=== PATIENT | male | born 1955 | race Caucasian/White ===

== ENCOUNTER 2017-11-28 15:04 | Inpatient (IN) | payer OTHER ==
[~2017-11-28] VITALS: Ht 185.4 cm; Wt 68.1 kg
[~2017-11-28 15:04] MED LIST: APIX5TAB PO; DIAZ10 PO; GENT0.1C TOPICAL; LEVO150T7 PO; LISI-515 PO; LOVA20TA PO; PROP15TA PO; PROP50TA2 PO; VARE.5 PO
[2017-11-28 15:56] VITALS: BP 143/86; PULSE 80; RESP 18; TEMP 100.7; O2SAT 99
[2017-11-28 17:15] LABS: AUTOMATED NEUTROPHIL # 14.9 TH/MM3 (1.8-7.7); BASOPHIL % 0.2 % (0.0-2.0); HEMATOCRIT 46.3 % (39.0-51.0); HEMOGLOBIN 15.5 GM/DL (13.0-17.0); LYMPH % 6.1 % (9.0-44.0); LYMPHOCYTE # 1.1 TH/MM3 (1.0-4.8); MEAN CELL VOLUME 91.1 FL (80.0-100.0); MEAN CORPUSCULAR HEMOGLOBIN 30.5 PG (27.0-34.0); MEAN CORPUSCULAR HGB CONC 33.5 % (32.0-36.0); MEAN PLATELET VOLUME 7.6 FL (7.0-11.0); MONO % 8.6 % (0.0-8.0); MONOCYTE # 1.5 TH/MM3 (0-0.9); NEUT % 85.1 % (16.0-70.0); PLATELET COUNT 431 TH/MM3 (150-450); RED BLOOD COUNT 5.08 MIL/MM3 (4.50-5.90); RED CELL DISTRIBUTION WIDTH 15.2 % (11.6-17.2); WHITE BLOOD COUNT 17.5 TH/MM3 (4.0-11.0)
[2017-11-28 17:21] LABS: INTERNATIONAL NORMALIZED RATIO 1.2 RATIO; PROTHROMBIN TIME - PATIENT 11.8 SEC (9.8-11.6)
[2017-11-28 17:37] LABS: ALBUMIN 3.6 GM/DL (3.4-5.0); ALT (GPT) 21 U/L (12-78); AST (GOT) 20 U/L (15-37); BLOOD UREA NITROGEN 13 MG/DL (7-18); CALCIUM 9.5 MG/DL (8.5-10.1); CHLORIDE 93 MEQ/L (98-107); CREATININE 1.12 MG/DL (0.60-1.30); GLOMERULAR FILTRATION RATE 66 ML/MIN (>89); GLUCOSE,RANDOM 91 MG/DL (74-106); SODIUM (NA) 129 MEQ/L (136-145)
[2017-11-28 17:39] LABS: ALKALINE PHOSPHATASE 110 U/L (45-117); TOTAL BILIRUBIN ADULT 0.6 MG/DL (0.2-1.0)
[2017-11-28] MEDS ORDERED: VANCOMYCIN INJ 1,250 MG in SODIUM CHLOR 0.9% 250 ML INJ 250 ML IV ONE (18:30)
[2017-11-28] MEDS ORDERED: oxyCODONE/ACETAMINOPHEN 5 MG/325 MG TAB PO ONE (18:30)
--- NOTE | 2017-11-28 18:34 | PD ---
HPI Chief Complaint: Skin Problem Time Seen by Provider: 18:23 Travel History International Travel<30 days: No Contact w/Intl Traveler<30days: No Traveled to known affect area: No History of Present Illness HPI Patient is a 62-year-old male, history of paraplegia, who is sent by his doctor for debridement of a pressure ulcer. He has had this ulcer for about a month, and says it has been getting worse. He says he has felt febrile and had a temperature at his doctor's office. He takes pain medicine at home, which she says is not been helping. He denies any new injury. He was on Cipro recently for this. He has had other wounds debrided in the past. Severity is mild to moderate. PFSH Past Medical History Arthritis: Yes (DJD) Blood Disorders: No Heart Rhythm Problems: Yes (NEW ONSET AFIB W/RVR) Cancer: No Cardiovascular Problems: Yes Chest Pain: Yes Diminished Hearing: No Endocrine: No Gastrointestinal Disorders: Yes (CROHN'S DISEASE) GERD: Yes Genitourinary: Yes (INDWELLING GONZALES CATHETER) Headaches: Yes Immune Disorder: No Musculoskeletal: Yes ([place]) Neurologic: Yes ([place]) Psychiatric: No Reproductive: No Respiratory: No Past Surgical History Abdominal Surgery: Yes (CROHN'S DISEASE; LRG BOWEL RESECTION, APPY) Appendectomy: Yes Genitourinary Surgery: Yes (TUMOR REMOVED BLADDER) Neurologic Surgery: Yes ([place]) Oral Surgery: Yes (TONSILLECTOMY) Pacemaker: Yes Social History Alcohol Use: Yes (1-2X/WEEK 3-4BEER; OCCASSIONALLY) Tobacco Use: Yes (2-3 CIG/DAY) Substance Use: No Allergies-Medications (Allergen,Severity, Reaction): Coded Allergies: cephalexin (Unverified Allergy, Intermediate, RASH, 11/28/17) meperidine (Unverified Allergy, Intermediate, N&V, 11/28/17) morphine (Unverified Allergy, Intermediate, N&V, 11/28/17) amoxicillin (Unverified Allergy, Unknown, Diarrhea, 11/28/17) codeine (Unverified Allergy, Unknown, 11/28/17) megestrol (Unverified Allergy, Unknown, 11/28/17) Reported Meds & Prescriptions Reported Meds & Active Scripts Active Propantheline [place] 15 Mg Tab 15 Mg PO 0600,1200,1600,1999 Reported Lisinopril 20 Mg Tab 20 Mg PO DAILY Valium (Diazepam) 10 Mg Tab 10 Mg PO Q4 PRN Propylthiouracil 50 Mg Tab 50 Mg PO DAILY Lovastatin 20 Mg Tab 20 Mg PO DAILY Levothyroxine (Levothyroxine Sodium) 150 Mcg Tab 150 Mcg PO DAILY Eliquis (Apixaban) 5 Mg Tab 5 Mg PO BID Chantix (Varenicline) 0.5 Mg Tab 0.5 Mg PO BIDPC Days 4-7 Gentamicin Topical 0.1% Cream 1 Applic TOPICAL BID Apply to affected area(s) Review of Systems Except as stated in HPI: all other systems reviewed are Neg General / Constitutional: Positive: Fever, Chills HENT: No: Headaches Cardiovascular: No: Chest Pain or Discomfort Respiratory: No: Shortness of Breath Gastrointestinal: No: Nausea, Vomiting Musculoskeletal: Positive: Pain Skin: Positive Other (Pressure ulcer) Neurologic: No: Weakness, Dizziness Physical Exam Narrative GENERAL: Awake and alert, no acute distress. SKIN: 5 cm round pressure ulcer to the right hip, draining purulent drainage. There are wounds on the left hip that have been dressed, not causing an issue. HEAD: Atraumatic. Normocephalic. EYES: Pupils equal and round. No scleral icterus. ENT: No nasal bleeding or discharge. Mucous membranes pink and moist. NECK: Trachea midline. No JVD. CARDIOVASCULAR: Regular rate and rhythm. No murmur appreciated. RESPIRATORY: No accessory muscle use. Clear to auscultation. Breath sounds equal bilaterally. GASTROINTESTINAL: Abdomen soft, non-tender, nondistended. MUSCULOSKELETAL: No obvious deformities. No clubbing. No cyanosis. No edema. NEUROLOGICAL: Awake and alert. No obvious cranial nerve deficits. Paraplegia. Normal speech. PSYCHIATRIC: Appropriate mood and affect; insight and judgment normal. Data Data Last Documented VS Vital Signs Date Time Temp Pulse Resp B/P (MAP) Pulse Ox O2 Delivery O2 Flow Rate FiO2 11/28/17 19:26 101.2 80 22 124/71 (88) 97 Room Air Orders Orders Complete Blood Count With Diff (11/28/17 15:59) Comprehensive Metabolic Panel (11/28/17 15:59) Prothrombin Time / Inr (Pt) (11/28/17 15:59) Act Partial Throm Time (Ptt) (11/28/17 15:59) Lactic Acid Sepsis Protocol (11/28/17 15:59) Urinalysis - C+S If Indicated (11/28/17 15:59) C-Reactive Protein (Crp) (11/28/17 15:59) Westergren Sedimentation Rate (11/28/17 15:59) Pelvis, Ap Only (Routine) (11/28/17 ) Oxycodone-Acetamin 5-325 Mg (Percocet (11/28/17 18:30) Iv Access Insert/Monitor (11/28/17 18:28) Vancomycin Inj (Vancomycin Inj) (11/28/17 18:30) Aztreonam Inj (Azactam Inj) (11/28/17 18:45) Admit Order (Ed Use Only) (11/28/17 19:47) Labs Laboratory Tests Test 11/28/17 16:44 White Blood Count 17.5 TH/MM3 Red Blood Count 5.08 MIL/MM3 Hemoglobin 15.5 GM/DL Hematocrit 46.3 % Mean Corpuscular Volume 91.1 FL Mean Corpuscular Hemoglobin 30.5 PG Mean Corpuscular Hemoglobin Concent 33.5 % Red Cell Distribution Width 15.2 % Platelet Count 431 TH/MM3 Mean Platelet Volume 7.6 FL Neutrophils (%) (Auto) 85.1 % Lymphocytes (%) (Auto) 6.1 % Monocytes (%) (Auto) 8.6 % Eosinophils (%) (Auto) 0.0 % Basophils (%) (Auto) 0.2 % Neutrophils # (Auto) 14.9 TH/MM3 Lymphocytes # (Auto) 1.1 TH/MM3 Monocytes # (Auto) 1.5 TH/MM3 Eosinophils # (Auto) 0.0 TH/MM3 Basophils # (Auto) 0.0 TH/MM3 CBC Comment DIFF FINAL Differential Comment Erythrocyte Sedimentation Rate 4 mm/hr Prothrombin Time 11.8 SEC Prothromb Time International Ratio 1.2 RATIO Activated Partial Thromboplast Time 42.2 SEC Blood Urea Nitrogen 13 MG/DL Creatinine 1.12 MG/DL Random Glucose 91 MG/DL Total Protein 9.0 GM/DL Albumin 3.6 GM/DL Calcium Level 9.5 MG/DL Alkaline Phosphatase 110 U/L Aspartate Amino Transf (AST/SGOT) 20 U/L Alanine Aminotransferase (ALT/SGPT) 21 U/L Total Bilirubin 0.6 MG/DL Sodium Level 129 MEQ/L Potassium Level 3.6 MEQ/L Chloride Level 93 MEQ/L Carbon Dioxide Level 25.0 MEQ/L Anion Gap 11 MEQ/L Estimat Glomerular Filtration Rate 66 ML/MIN Lactic Acid Level 1.4 mmol/L C-Reactive Protein 15.60 MG/DL MDM Medical Decision Making Medical Screen Exam Complete: Yes Emergency Medical Condition: Yes Medical Record Reviewed: Yes Differential Diagnosis Cellulitis versus abscess versus Narrative Course Patient is a 62-year-old male who comes in due to an infected ulcer on his right hip. Exam shows purulent drainage from the site. IV established, labs sent. Labs show an elevated white blood cell count. Patient given pain medicine, antibiotics. He will be admitted for further management. Diagnosis Primary Impression: Cellulitis Qualified Codes: L03.317 - Cellulitis of buttock Additional Impression: Pressure ulcer Qualified Codes: L89.303 - Pressure ulcer of unspecified buttock, stage 3 Admitting Information Admitting Physician Requests: Admit Scripts Propantheline [place] (Propantheline [place]) 15 Mg Tab 15 MG PO 0600,1200,1600,2000 for DIAPHORESIS, #120 CAP Prov: Mitra Peterson 11/28/17 Yelitza Dubose MD Nov 28, 2017 18:34
[2017-11-28] MEDS ORDERED: AZTREONAM INJ 1,000 MG in SODIUM CHLORIDE 0.9% INJ 100 ML IV ONE (18:45)
[2017-11-28 19:26] VITALS: BP 124/71; PULSE 80; RESP 22; TEMP 101.2; O2SAT 97
[2017-11-28] MEDS ORDERED: Vancomycin Consult Pharmacy 1 EA OTHER SCH (20:00)
[2017-11-28] MEDS ORDERED: SODIUM CHLORIDE 0.9% FLUSH 10 ML FLUSH IV FLUSH PRN (20:00)
[2017-11-28] MEDS ORDERED: NALOXONE HCL 0.4 MG/ML AMP IV PUSH PRN (20:00)
--- NOTE | 2017-11-28 20:12 | PD ---
Physical Exam Date Seen by Provider: Nov 28, 2017 Time Seen by Provider: 20:10 Narrative Please refer to my attendings note. I was asked to speak with admitting physician for admission as my attending was unfortunately taking care of a code. Data Data Last Documented VS Vital Signs Date Time Temp Pulse Resp B/P (MAP) Pulse Ox O2 Delivery O2 Flow Rate FiO2 11/28/17 19:26 101.2 80 22 124/71 (88) 97 Room Air Orders Orders Complete Blood Count With Diff (11/28/17 15:59) Comprehensive Metabolic Panel (11/28/17 15:59) Prothrombin Time / Inr (Pt) (11/28/17 15:59) Act Partial Throm Time (Ptt) (11/28/17 15:59) Lactic Acid Sepsis Protocol (11/28/17 15:59) Urinalysis - C+S If Indicated (11/28/17 15:59) C-Reactive Protein (Crp) (11/28/17 15:59) Westergren Sedimentation Rate (11/28/17 15:59) Pelvis, Ap Only (Routine) (11/28/17 ) Oxycodone-Acetamin 5-325 Mg (Percocet (11/28/17 18:30) Iv Access Insert/Monitor (11/28/17 18:28) Vancomycin Inj (Vancomycin Inj) (11/28/17 18:30) Aztreonam Inj (Azactam Inj) (11/28/17 18:45) Admit Order (Ed Use Only) (11/28/17 19:47) Admit To Inpatient (11/28/17 ) Vital Signs (Adult) Q4H (11/28/17 19:55) Activity Oob With Assistance (11/28/17 19:55) Health Service Coordinator / Telemetry .CONTINUOUS (11/28/17 19:55) Diet Heart Healthy (11/29/17 Breakfast) Sodium Chloride 0.9% Flush (Ns Flush) (11/28/17 20:00) Sodium Chloride 0.9% Flush (Ns Flush) (11/28/17 21:00) Basic Metabolic Panel (Bmp) (11/29/17 06:00) Complete Blood Count With Diff (11/29/17 06:00) Pt Request For Service (11/28/17 19:55) Case Management Consult (11/28/17 19:55) Naloxone Inj (Narcan Inj) (11/28/17 20:00) Inpatient Certification (11/28/17 ) Consult Wound Care Physician (11/28/17 ) Vancomycin Consult Pharmacy (Vancomycin (11/28/17 20:00) Aztreonam Inj (Azactam Inj) (11/29/17 08:00) Lactobacillus Acidophilus (Lactinex) (11/29/17 09:00) Labs Laboratory Tests Test 11/28/17 16:44 White Blood Count 17.5 TH/MM3 Red Blood Count 5.08 MIL/MM3 Hemoglobin 15.5 GM/DL Hematocrit 46.3 % Mean Corpuscular Volume 91.1 FL Mean Corpuscular Hemoglobin 30.5 PG Mean Corpuscular Hemoglobin Concent 33.5 % Red Cell Distribution Width 15.2 % Platelet Count 431 TH/MM3 Mean Platelet Volume 7.6 FL Neutrophils (%) (Auto) 85.1 % Lymphocytes (%) (Auto) 6.1 % Monocytes (%) (Auto) 8.6 % Eosinophils (%) (Auto) 0.0 % Basophils (%) (Auto) 0.2 % Neutrophils # (Auto) 14.9 TH/MM3 Lymphocytes # (Auto) 1.1 TH/MM3 Monocytes # (Auto) 1.5 TH/MM3 Eosinophils # (Auto) 0.0 TH/MM3 Basophils # (Auto) 0.0 TH/MM3 CBC Comment DIFF FINAL Differential Comment Erythrocyte Sedimentation Rate 4 mm/hr Prothrombin Time 11.8 SEC Prothromb Time International Ratio 1.2 RATIO Activated Partial Thromboplast Time 42.2 SEC Blood Urea Nitrogen 13 MG/DL Creatinine 1.12 MG/DL Random Glucose 91 MG/DL Total Protein 9.0 GM/DL Albumin 3.6 GM/DL Calcium Level 9.5 MG/DL Alkaline Phosphatase 110 U/L Aspartate Amino Transf (AST/SGOT) 20 U/L Alanine Aminotransferase (ALT/SGPT) 21 U/L Total Bilirubin 0.6 MG/DL Sodium Level 129 MEQ/L Potassium Level 3.6 MEQ/L Chloride Level 93 MEQ/L Carbon Dioxide Level 25.0 MEQ/L Anion Gap 11 MEQ/L Estimat Glomerular Filtration Rate 66 ML/MIN Lactic Acid Level 1.4 mmol/L C-Reactive Protein 15.60 MG/DL [facility] Medical Record Reviewed: Yes Supervised Visit with DELMER: No Narrative Course 61-year-old male here for infected pressure ulcer. I was asked by my attending to speak with the admitting physician. Please refer to her note. I spoke with Dr. Jarvis who agrees to admission for infected pressure ulcer. Diagnosis Primary Impression: Pressure ulcer Qualified Codes: L89.303 - Pressure ulcer of unspecified buttock, stage 3 Additional Impression: Cellulitis Qualified Codes: L03.317 - Cellulitis of buttock Admitting Information Admitting Physician Requests: Galdino Ellison Nov 28, 2017 20:12
--- NOTE | 2017-11-28 20:19 | RADRPT ---
EXAM DATE/TIME: 11/28/2017 19:14 [facility] COMPARISON: No previous studies available for comparison. INDICATIONS : Posterior pressure sores. MEDICAL HISTORY : Gastroesophageal reflux disease. Paraplegic. Atrial fibrillation. Arthritis. SURGICAL HISTORY : Pacemaker. Defibrillator. Crohn's disease. large bowel resection. ENCOUNTER: Initial ACUITY: 1 month PAIN SCORE: 7/10 LOCATION: Pelvis. FINDINGS: No acute fracture identified. There is some expansion of the proximal left femur in the intertrochant delroy region which could be related to prior trauma. Prominent soft tissue calcifications around the r ight ischial tuberosity are noted. Bones are generally osteopenic. CONCLUSION: 1. No acute fracture identified. See above discussion. Neeraj Klein MD on November 28, 2017 at 20:15 Board Certified Radiologist. This report was verified electronically.
[2017-11-28] MEDS ORDERED: PROP15TA PO (20:23)
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
[2017-11-28] MEDS ORDERED: oxyCODONE/ACETAMINOPHEN 5 MG/325 MG TAB PO PRN (21:00)
[2017-11-28] MEDS ORDERED: diphenhydrAMINE HCL 25 MG CAP PO PRN (21:00)
[2017-11-28] MEDS: SODIUM CHLORIDE 0.9% FLUSH 10 ML FLUSH IV FLUSH SCH (21:00)
[2017-11-28] MEDS ORDERED: HEPARIN-D5W 25,000 U/250 ML 250 ML IV PRN (21:15)
[2017-11-28] MEDS: HYDROmorphone HCL PF 2 MG/ML VIAL IV PRN (21:56)
[2017-11-28] MEDS: ONDANSETRON HCL 4 MG/2 ML VIAL IV PUSH PRN (21:58)
[2017-11-28] MEDS ORDERED: ACETAMINOPHEN 325 MG TAB PO PRN (22:45)
[2017-11-28 23:00] VITALS: BP 136/66; PULSE 85; RESP 17; O2SAT 98
--- NOTE | 2017-11-28 23:18 | RADRPT ---
EXAM DATE/TIME: 11/28/2017 22:57 [facility] COMPARISON: No previous studies available for comparison. INDICATIONS : Recent developing hemoptysis. MEDICAL HISTORY : Gastroesophageal reflux disease. Arthritis. Crohn's disease. Paraplegic A-fib SURGICAL HISTORY : Pacemaker. Colon resection. Defibrillator ENCOUNTER: Subsequent ACUITY: 1 day PAIN SCORE: 0/10 LOCATION: Bilateral chest FINDINGS: A single view of the chest demonstrates the lungs to be symmetrically aerated without evidence of mas s, infiltrate or effusion. The cardiomediastinal contours are unremarkable. Deformity of the left m id clavicle suggesting healed fracture.. The cardiac pacer leads in place. There are numerous small metallic or calcific densities projected over the lower midline and left chest which cannot be furth er localized or characterized on a single view exam. CONCLUSION: 1. The lungs are clear. 2. Numerous metallic or calcific densities projected the lower chest uncertain in location or margin. Tramaine Obrien MD on November 28, 2017 at 23:12 Board Certified Radiologist. This report was verified electronically.
[2017-11-29] VITALS (9 sets, daily range): BP systolic 89–131; BP diastolic 56–82; PULSE 76–102; RESP 16–20; TEMP 97.4–98.9; O2SAT 96–99
[2017-11-29] MEDS: oxyCODONE/ACETAMINOPHEN 10 MG/325 MG TAB PO PRN ×3 (01:55→20:42)
[2017-11-29] MEDS: ONDANSETRON HCL 4 MG/2 ML VIAL IV PUSH PRN ×3 (03:39→22:02)
[2017-11-29] MEDS: HYDROmorphone HCL PF 2 MG/ML VIAL IV PRN ×3 (03:39→22:03)
[2017-11-29 04:12] LABS: AUTOMATED NEUTROPHIL # 12.3 TH/MM3 (1.8-7.7); BASOPHIL # 0.2 TH/MM3 (0-0.2); EOSINOPHIL % 0.2 % (0.0-4.0); HEMATOCRIT 40.2 % (39.0-51.0); HEMOGLOBIN 13.6 GM/DL (13.0-17.0); LYMPH % 12.6 % (9.0-44.0); LYMPHOCYTE # 2.1 TH/MM3 (1.0-4.8); MEAN CELL VOLUME 90.4 FL (80.0-100.0); MEAN CORPUSCULAR HEMOGLOBIN 30.5 PG (27.0-34.0); MEAN CORPUSCULAR HGB CONC 33.7 % (32.0-36.0); MEAN PLATELET VOLUME 7.6 FL (7.0-11.0); MONO % 11.2 % (0.0-8.0); MONOCYTE # 1.8 TH/MM3 (0-0.9); PLATELET COUNT 360 TH/MM3 (150-450); RED BLOOD COUNT 4.44 MIL/MM3 (4.50-5.90); WHITE BLOOD COUNT 16.4 TH/MM3 (4.0-11.0)
[2017-11-29 04:45] LABS: BICARBONATE 27.5 MEQ/L (21.0-32.0); CALCIUM 8.4 MG/DL (8.5-10.1); CREATININE 1.17 MG/DL (0.60-1.30)
[2017-11-29] MEDS ORDERED: [UNRECOGNIZED DRUG - OTHER] PO SCH (06:00)
[2017-11-29] MEDS ORDERED: PROPANTHELINE BROMIDE 15 MG PO SCH (06:00)
[2017-11-29] MEDS: LEVOTHYROXINE SODIUM 150 MCG TAB PO SCH (07:40)
[2017-11-29] MEDS: AZTREONAM INJ 2,000 MG in SODIUM CHLORIDE 0.9% INJ 100 ML IV SCH ×2 (08:32→22:01)
[2017-11-29] MEDS: LACTOBACILLUS ACIDOPHILUS TAB PO SCH ×3 (08:33→18:44)
[2017-11-29] MEDS: PRAVASTATIN SOD 20 MG TAB PO SCH (08:33)
[2017-11-29] MEDS: SODIUM CHLORIDE 0.9% FLUSH 10 ML FLUSH IV FLUSH SCH ×2 (08:34→21:00)
[2017-11-29] MEDS ORDERED: VANCOMYCIN INJ 800 MG in SODIUM CHLOR 0.9% 250 ML INJ 250 ML IV SCH (09:00)
[2017-11-29] MEDS: LISINOPRIL 20 MG TAB PO SCH (09:00)
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
[2017-11-29] MEDS: SODIUM CHLOR 0.9% 1000 ML INJ 1,000 ML IV SCH (14:27)
[2017-11-29] MEDS: DIAZEPAM 10 MG TAB PO PRN (18:43)
--- NOTE | 2017-11-29 21:30 | PD.CAR.PN ---
CVT Progress Note Subjective/Hospital Course: Patient seen and evaluated and examined Long medical history as well as surgical history of decubiti ulcers with reconstructions by plastic surgery in the past New ulcer measuring about 4 cm in diameter reaching down to the bone of the right hip Patient will require debridement resection possible temporary coverage with either wound VAC or some biocellular matrix material and then permanent reconstruction and coverage This process and management is clearly in the armamentarium and field of plastic and reconstructive surgery specialists Discussed with Dr. Jackelyn Almeida Objective: Vital Signs Date Time Temp Pulse Resp B/P (MAP) Pulse Ox O2 Delivery O2 Flow Rate FiO2 11/29/17 20:36 98.9 80 20 106/66 (79) 99 11/29/17 18:57 83 114/82 (93) 11/29/17 17:07 97.5 80 18 94/59 (71) 97 11/29/17 15:35 80 18 125/78 (94) 11/29/17 15:00 97.4 80 18 131/78 (95) 96 11/29/17 13:23 80 18 117/68 (84) 98 Room Air 11/29/17 07:45 102 18 90/59 (69) 97 Room Air 11/29/17 03:00 98.9 76 19 128/70 (89) 98 Room Air 11/28/17 23:00 85 17 136/66 (89) 98 Room Air Labs: Laboratory Tests Test 11/29/17 11:34 Lactic Acid Level 1.6 mmol/L (0.4-2.0) Procalcitonin 0.39 ng/mL (0.00-0.08) Result Diagram: 11/29/1740011/29/17 040 Hernan Meza MD Nov 29, 2017 21:30
[2017-11-29] MEDS: ENOXAPARIN SODIUM 40 MG/0.4 ML SYRINGE SQ SCH (22:01)
[2017-11-30] VITALS (7 sets, daily range): BP systolic 87–110; BP diastolic 60–96; PULSE 60–80; RESP 18–20; TEMP 96.8–98.2; O2SAT 96–98
[2017-11-30] MEDS: SODIUM CHLOR 0.9% 1000 ML INJ 1,000 ML IV SCH (00:03)
[2017-11-30] MEDS ORDERED: SODIUM CHLORID 0.9% 500 ML INJ 500 ML IV ONE (03:00)
[2017-11-30] MEDS: VANCOMYCIN 1,000 MG/NS 250 ML IV SCH ×2 (04:08)
[2017-11-30] MEDS: oxyCODONE/ACETAMINOPHEN 10 MG/325 MG TAB PO PRN ×4 (04:09→23:06)
[2017-11-30] MEDS: LEVOTHYROXINE SODIUM 150 MCG TAB PO SCH (07:02)
[2017-11-30] MEDS: HYDROmorphone HCL PF 2 MG/ML VIAL IV PRN ×3 (07:02→18:44)
[2017-11-30] MEDS ORDERED: PHARMACY ORDERED LAB ONE (08:45)
[2017-11-30] MEDS: LISINOPRIL 20 MG TAB PO SCH (09:00)
[2017-11-30 09:36] LABS: BACTERIA, URINE OCC /hpf; BILIRUBIN, URINE NEG (NEG); BLOOD, URINE TRACE (NEG); GLUCOSE,URINE NEG (NEG); KETONE, URINE NEG (NEG); NITRITE,URINE NEG (NEG); SQUAMOUS EPITHELIAL CELL URINE <1 /hpf (0-5); URINE COLOR LIGHT-YELLOW (YELLW/STRAW); URINE LEUKOCYTE ESTERASE LARGE (NEG); WHITE BLOOD CELL CLUMPS OCC
[2017-11-30] MEDS: LACTOBACILLUS ACIDOPHILUS TAB PO SCH ×3 (10:10→16:35)
[2017-11-30] MEDS: PRAVASTATIN SOD 20 MG TAB PO SCH (10:10)
[2017-11-30] MEDS: SODIUM CHLORIDE 0.9% FLUSH 10 ML FLUSH IV FLUSH SCH ×2 (10:11→23:04)
[2017-11-30] MEDS: AZTREONAM INJ 2,000 MG in SODIUM CHLORIDE 0.9% INJ 100 ML IV SCH (10:32)
[2017-11-30 11:03] LABS: AUTOMATED NEUTROPHIL # 9.6 TH/MM3 (1.8-7.7); BASOPHIL % 0.3 % (0.0-2.0); EOSINOPHIL # 0.1 TH/MM3 (0-0.4); EOSINOPHIL % 0.5 % (0.0-4.0); HEMATOCRIT 38.2 % (39.0-51.0); HEMOGLOBIN 12.8 GM/DL (13.0-17.0); LYMPH % 9.7 % (9.0-44.0); LYMPHOCYTE # 1.2 TH/MM3 (1.0-4.8); MEAN CELL VOLUME 90.8 FL (80.0-100.0); MEAN CORPUSCULAR HEMOGLOBIN 30.4 PG (27.0-34.0); MEAN CORPUSCULAR HGB CONC 33.5 % (32.0-36.0); MEAN PLATELET VOLUME 7.8 FL (7.0-11.0); MONO % 9.9 % (0.0-8.0); MONOCYTE # 1.2 TH/MM3 (0-0.9); NEUT % 79.6 % (16.0-70.0); PLATELET COUNT 365 TH/MM3 (150-450); RED CELL DISTRIBUTION WIDTH 15.4 % (11.6-17.2); WHITE BLOOD COUNT 12.1 TH/MM3 (4.0-11.0)
[2017-11-30 11:25] LABS: BICARBONATE 26.6 MEQ/L (21.0-32.0); CALCIUM 8.3 MG/DL (8.5-10.1); CREATININE 1.18 MG/DL (0.60-1.30)
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
[2017-11-30] MEDS: DIAZEPAM 10 MG TAB PO PRN ×2 (16:34→23:06)
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
[2017-11-30] MEDS: ENOXAPARIN SODIUM 40 MG/0.4 ML SYRINGE SQ SCH (23:05)
[2017-12-01 00:32] VITALS: BP 97/65; PULSE 80; RESP 16; TEMP 98.2; O2SAT 97
[2017-12-01] MEDS: AZTREONAM INJ 2,000 MG in SODIUM CHLORIDE 0.9% INJ 100 ML IV SCH ×3 (01:32→21:14)
[2017-12-01] MEDS: VANCOMYCIN 1,000 MG/NS 250 ML IV SCH ×4 (02:52→15:22)
[2017-12-01 04:32] VITALS: BP 103/63; PULSE 80; RESP 16; TEMP 98.4; O2SAT 97
[2017-12-01] MEDS: LEVOTHYROXINE SODIUM 150 MCG TAB PO SCH (06:39)
[2017-12-01 09:33] VITALS: BP 114/69; PULSE 79; RESP 16; TEMP 98.9; O2SAT 98
[2017-12-01] MEDS: PRAVASTATIN SOD 20 MG TAB PO SCH (09:40)
[2017-12-01] MEDS: LACTOBACILLUS ACIDOPHILUS TAB PO SCH ×3 (09:40→17:38)
[2017-12-01] MEDS: SODIUM CHLORIDE 0.9% FLUSH 10 ML FLUSH IV FLUSH SCH ×2 (09:40→21:17)
[2017-12-01] MEDS: LISINOPRIL 20 MG TAB PO SCH (09:41)
[2017-12-01] MEDS: ONDANSETRON HCL 4 MG/2 ML VIAL IV PUSH PRN (09:42)
[2017-12-01] MEDS: oxyCODONE/ACETAMINOPHEN 10 MG/325 MG TAB PO PRN ×2 (09:44→21:13)
[2017-12-01 11:41] VITALS: BP 117/61; PULSE 80; RESP 16; TEMP 98.6; O2SAT 97
[2017-12-01] MEDS ORDERED: PHARMACY ORDERED LAB ONE (14:45)
[2017-12-01 16:00] VITALS: BP 141/70; PULSE 80; RESP 18; TEMP 97.4; O2SAT 94
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
[2017-12-01 20:00] VITALS: BP 132/80; PULSE 80; RESP 17; TEMP 98.6; O2SAT 97
[2017-12-01] MEDS: DIAZEPAM 10 MG TAB PO PRN (21:13)
[2017-12-01] MEDS: ENOXAPARIN SODIUM 40 MG/0.4 ML SYRINGE SQ SCH (21:18)
[2017-12-02] VITALS: BP 112/71; PULSE 83; RESP 18; TEMP 97.8; O2SAT 94
[2017-12-02] MEDS: ONDANSETRON HCL 4 MG/2 ML VIAL IV PUSH PRN ×3 (04:44→22:20)
[2017-12-02] MEDS: LEVOTHYROXINE SODIUM 150 MCG TAB PO SCH (04:45)
[2017-12-02] MEDS: oxyCODONE/ACETAMINOPHEN 10 MG/325 MG TAB PO PRN ×4 (04:45→22:18)
[2017-12-02] MEDS: VANCOMYCIN INJ 1,250 MG in SODIUM CHLOR 0.9% 250 ML INJ 250 ML IV SCH ×2 (06:50→23:46)
[2017-12-02 08:00] VITALS: BP 99/63; PULSE 80; RESP 17; TEMP 97.7; O2SAT 96
[2017-12-02] MEDS: LISINOPRIL 20 MG TAB PO SCH (09:00)
[2017-12-02] MEDS: LACTOBACILLUS ACIDOPHILUS TAB PO SCH ×3 (09:09→17:35)
[2017-12-02] MEDS: PRAVASTATIN SOD 20 MG TAB PO SCH (09:09)
[2017-12-02] MEDS: AZTREONAM INJ 2,000 MG in SODIUM CHLORIDE 0.9% INJ 100 ML IV SCH ×2 (09:10→22:20)
[2017-12-02] MEDS: SODIUM CHLORIDE 0.9% FLUSH 10 ML FLUSH IV FLUSH SCH ×2 (09:10→22:26)
[2017-12-02] MEDS ORDERED: BISACODYL 10 MG SUPP RECTAL ONE (10:00)
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
[2017-12-02 12:00] VITALS: BP 112/63; PULSE 80; RESP 18; TEMP 98.3; O2SAT 97
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
[2017-12-02] MEDS ORDERED: DIATRIZOATE MEGLUM/DIATRIZOATE SOD 9 ML CUP PO ONE (13:30)
--- NOTE | 2017-12-02 14:20 | PD.ID.CON ---
History of Present Illness Service ID Consult Requested By Dr Castaneda Reason for Consult sepsis UTI back wound [facility] Diagnoses: History of Present Illness Past Family Social History Allergies: Coded Allergies: cephalexin (Unverified Allergy, Intermediate, RASH, 11/28/17) meperidine (Unverified Allergy, Intermediate, N&V, 11/28/17) morphine (Unverified Allergy, Intermediate, N&V, 11/28/17) amoxicillin (Unverified Allergy, Unknown, Diarrhea, 11/28/17) codeine (Unverified Allergy, Unknown, 11/28/17) megestrol (Unverified Allergy, Unknown, 11/28/17) Active Ordered Medications Medications where reviewed in EMR Antibiotics Include: vanco azactam Physical Exam Vital Signs Vital Signs Date Time Temp Pulse Resp B/P (MAP) Pulse Ox O2 Delivery O2 Flow Rate FiO2 12/02/17 12:00 98.3 80 18 112/63 (79) 97 12/02/17 08:00 97.7 80 17 99/63 (75) 96 12/02/17 05:50 18 12/02/17 00:00 97.8 83 18 112/71 (85) 94 12/01/17 20:00 98.6 80 17 132/80 (97) 97 12/01/17 16:00 97.4 80 18 141/70 (93) 94 Physical Exam Laboratory Laboratory Tests Test 12/01/17 14:58 Vancomycin Level Trough 8.8 Date/Time Source Procedure Growth Status 12/01/17 02:41 Blood Peripheral Aerobic Blood Culture - Preliminary NO GROWTH IN 1 DAY Resulted 12/01/17 02:41 Blood Peripheral Anaerobic Blood Culture - Preliminary NO GROWTH IN 1 DAY Resulted 11/30/17 08:45 Urine Catheterized Urine Urine Culture - Final NO GROWTH IN 48 HOURS. Complete Result Diagram: 11/30/17 1021 11/30/17 1021 Imaging Last Impressions Pelvis X-Ray 11/28/17 0000 Signed Impressions: Service Date/Time: Tuesday, November 28, 2017 19:14 - CONCLUSION: 1. No acute fracture identified. See above discussion. Neeraj Klein MD Chest X-Ray 11/28/17 0000 Signed Impressions: Service Date/Time: Tuesday, November 28, 2017 22:57 - CONCLUSION: 1. The lungs are clear. 2. Numerous metallic or calcific densities projected the lower chest uncertain in location or margin. MD Jos Warner Alexandra A. MD Dec 02, 2017 14:20
--- NOTE | 2017-12-02 14:31 | MB ---
cc: Gorge Agosto MD DATE: 12/02/2017 REASON FOR CONSULTATION: Preoperative evaluation. HISTORY OF PRESENT ILLNESS: The patient is a very pleasant 62-year-old gentleman who has seen my partner, Dr. Escalante, who has a complex cardiac history including a cardiomyopathy with defibrillator placement, atrial fibrillation, maintained on Eliquis. The patient presents with dysphagia and pain in the esophagus, but also perhaps some pain in his chest. Due to him being a paraplegic, he has chronic GI issues. I have been asked to perform preoperative evaluation, given need for EGD/colonoscopy. PAST MEDICAL HISTORY: As above. CURRENT MEDICATIONS: 1. Eliquis is on hold. 2. Vancomycin. 3. Lovenox. 4. Lisinopril 20 mg daily. 5. Pravachol 20 mg daily. 6. Aztreonam. 7. Synthroid. ALLERGIES: AMOXICILLIN, CEPHALEXIN, CODEINE, MEGACE, MEPERIDINE, MORPHINE. PHYSICAL EXAMINATION: VITAL SIGNS: Afebrile, pulse 80, respiratory rate 18, BP 112/63, saturating 97% on room air. GENERAL: Pleasant gentleman, in no distress. NECK: No JVD. LUNGS: Clear to auscultation bilaterally. CARDIOVASCULAR: Regular rate and rhythm. No murmurs appreciated. ABDOMEN: Benign. EXTREMITIES: No edema. LABORATORY DATA: White count 12.1, down from 16, hematocrit 38.2, platelets 365. Sodium 133, potassium 3.6, chloride 99, bicarb 26.6, BUN 12, creatinine 1.18, glucose 78. EKG is pending. IMPRESSION: Preoperative evaluation. The patient has a known cardiomyopathy, some chest discomfort and atrial fibrillation. I think he does require a cardiac workup prior to any invasive procedures, given his complex history and his inability to provide any exertional symptoms, given his paraplegia. I will have him undergo a nuclear stress test, echocardiogram, and EKG. If these tests are without any new problems, I can provide clearance at that time. Thank you again for the opportunity to provide care for this patient. Gorge Agosto MD ARSALAN/TI , 02:15 PM , 02:31 PM
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
[2017-12-02 16:00] VITALS: BP 136/86; PULSE 77; RESP 18; TEMP 98.2; O2SAT 96
[2017-12-02] MEDS: metroNIDAZOLE 500 MG INJ 100 ML IV SCH ×2 (16:34→23:43)
[2017-12-02 17:17] LABS: TROPONIN I LESS THAN 0.02 NG/ML (0.02-0.05)
[2017-12-02 20:00] VITALS: BP 131/81; PULSE 79; RESP 18; TEMP 98.6; O2SAT 97
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
[2017-12-02 21:55] LABS: TROPONIN I LESS THAN 0.02 NG/ML (0.02-0.05)
[2017-12-02] MEDS: DIAZEPAM 10 MG TAB PO PRN (22:18)
[2017-12-02] MEDS: ENOXAPARIN SODIUM 40 MG/0.4 ML SYRINGE SQ SCH (22:23)
[2017-12-03] VITALS: BP 110/62; PULSE 80; RESP 18; TEMP 98.6; O2SAT 95
[2017-12-03 03:23] LABS: HEMATOCRIT 35.6 % (39.0-51.0); HEMOGLOBIN 11.9 GM/DL (13.0-17.0); MEAN CELL VOLUME 91.4 FL (80.0-100.0); MEAN CORPUSCULAR HEMOGLOBIN 30.5 PG (27.0-34.0); MEAN CORPUSCULAR HGB CONC 33.4 % (32.0-36.0); MEAN PLATELET VOLUME 7.5 FL (7.0-11.0); PLATELET COUNT 405 TH/MM3 (150-450); RED BLOOD COUNT 3.89 MIL/MM3 (4.50-5.90); RED CELL DISTRIBUTION WIDTH 15.2 % (11.6-17.2); WHITE BLOOD COUNT 10.4 TH/MM3 (4.0-11.0)
[2017-12-03] MEDS: oxyCODONE/ACETAMINOPHEN 10 MG/325 MG TAB PO PRN ×4 (03:35→20:49)
[2017-12-03] MEDS: AZTREONAM INJ 2,000 MG in SODIUM CHLORIDE 0.9% INJ 100 ML IV SCH ×4 (03:36→20:00)
[2017-12-03 03:41] LABS: BICARBONATE 29.3 MEQ/L (21.0-32.0); CREATININE 1.2 MG/DL (0.60-1.30)
[2017-12-03 03:44] LABS: TROPONIN I LESS THAN 0.02 NG/ML (0.02-0.05)
[2017-12-03 04:00] VITALS: BP 110/72; PULSE 80; RESP 18; TEMP 98.6; O2SAT 99
[2017-12-03] MEDS: LEVOTHYROXINE SODIUM 150 MCG TAB PO SCH (06:37)
[2017-12-03 08:00] VITALS: BP 98/58; PULSE 80; RESP 18; TEMP 98.3; O2SAT 97
[2017-12-03] MEDS: PRAVASTATIN SOD 20 MG TAB PO SCH (08:10)
[2017-12-03] MEDS: LACTOBACILLUS ACIDOPHILUS TAB PO SCH ×3 (08:10→17:01)
[2017-12-03] MEDS: ONDANSETRON HCL 4 MG/2 ML VIAL IV PUSH PRN ×3 (08:11→20:29)
[2017-12-03] MEDS: SODIUM CHLORIDE 0.9% FLUSH 10 ML FLUSH IV FLUSH SCH ×2 (08:12→20:34)
[2017-12-03] MEDS: metroNIDAZOLE 500 MG INJ 100 ML IV SCH ×2 (08:12→17:00)
[2017-12-03] MEDS: LISINOPRIL 20 MG TAB PO SCH (08:12)
[2017-12-03] MEDS ORDERED: REGADENOSON INJ 0.4 MG/5 ML SYR ONE (09:54)
[2017-12-03 12:00] VITALS: BP 112/74; PULSE 80; RESP 16; TEMP 98.3; O2SAT 99
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
--- NOTE | 2017-12-03 12:54 | RADRPT ---
EXAM DATE/TIME: 12/03/2017 09:41 [facility] COMPARISON: No previous studies available for comparison. INDICATIONS : Cardiomyopathy and preoperative clearance for surgery. Atrial fibrillation. DOSE: 26.1 mCi Tc99m Myoview at stress. 8.5 mCi Tc99m Myoview at rest. 0.4 mg Lexiscan STRESS SYMPTOMS: Chest pressure. EJECTION FRACTION: 59% MEDICAL HISTORY : Hypertension. SURGICAL HISTORY : Tonsillectomy. Pacemaker. Defibrillator. Appendectomy. ENCOUNTER: Initial ACUITY: 1 day PAIN SCALE: 0/10 LOCATION: chest TECHNIQUE: The patient underwent pharmacologic stress with infusion of prescribed dose. Continuous ECG tracing was monitored during stress. Gated SPECT imaging was performed after stress and conventional SPECT i maging was performed at rest. The examination was performed on a SPECT/CT scanner, both attenuation and non-corrected datasets were reviewed. FINDINGS: DISTRIBUTION: The maximum perfused segment at stress is in the anterior wall. PERFUSION STUDY: The pattern of perfusion at stress is within normal limits. GATED STUDY: There is intact wall motion and thickening without hypokinetic or dyskinetic segments. CONCLUSION: 1. Normal ejection fraction and normal wall motion. 2. No fixed or reversible defects to suggest ischemia or infarction. RISK CATEGORY: Low (<1% Annual Mortality Rate) Shukri Rodriguez MD on December 03, 2017 at 12:49 Board Certified Radiologist. This report was verified electronically.
[2017-12-03] MEDS: DIAZEPAM 10 MG TAB PO PRN ×2 (13:54→20:49)
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
[2017-12-03] MEDS ORDERED: PEG (High)/E-LYTE SOLN 4000 ML BTL PO ONE ×2 (15:45→16:00)
[2017-12-03 16:00] VITALS: BP 118/82; PULSE 80; RESP 18; TEMP 98.3; O2SAT 98
[2017-12-03] MEDS: POLYETHYLENE GLYCOL 17 GM PKG PO SCH (16:00)
[2017-12-03] MEDS ORDERED: MINERAL OIL ENEMA 118 ML BTL RECTAL ONE (16:00)
--- NOTE | 2017-12-03 17:38 | ECHRPT ---
Indication: cardiomyopathy CONCLUSIONS The left ventricular systolic function is normal with an estimated ejection fraction in the range of 60-65%. Normal left ventricular size. Wall thickness is normal. No regional wall motion abnormalities are present. BP: 110 / 72 HR: 80 Rhythm: Sinus Technical Quality:Technically difficult study FINDINGS LEFT VENTRICLE The left ventricular systolic function is normal with an estimated ejection fraction in the range of 60-65%. Normal left ventricular size. Wall thickness is normal. No regional wall motion abnormalities are present. RIGHT VENTRICLE Normal right ventricular size and systolic function. LEFT ATRIUM The left atrial size is normal. RIGHT ATRIUM The right atrial size is normal. ATRIAL SEPTUM Normal atrial septal thickness without atrial level shunting by limited color doppler interrogation. AORTA The aortic root and proximal ascending aorta are normal in size on limited imaging. MITRAL VALVE Structurally normal mitral valve. No mitral valve stenosis or regurgitation. AORTIC VALVE Trileaflet aortic valve. No aortic valve stenosis or regurgitation. TRICUSPID VALVE Structurally normal tricuspid valve. No tricuspid valve stenosis or regurgitation. PULMONARY VALVE The pulmonary valve is not well visualized. VESSELS The inferior vena cava is normal in size. PERICARDIUM No pericardial effusion. Kendrick Small MD, FACC (Electronically Signed) Final Date:03 December 2017 17:37
[2017-12-03] MEDS: VANCOMYCIN INJ 1,250 MG in SODIUM CHLOR 0.9% 250 ML INJ 250 ML IV SCH ×2 (18:33→18:34)
[2017-12-03 20:00] VITALS: BP 157/95; PULSE 80; RESP 20; TEMP 98.1; O2SAT 97
[2017-12-03] MEDS: ENOXAPARIN SODIUM 40 MG/0.4 ML SYRINGE SQ SCH (20:33)
[2017-12-03] MEDS: SODIUM HYPOCHLORITE 0.125% 500 ML BTL TOPICAL SCH (20:34)
[2017-12-04] VITALS (7 sets, daily range): BP systolic 94–121; BP diastolic 57–77; PULSE 80–81; RESP 17–20; TEMP 97.8–99.1; O2SAT 94–99
[2017-12-04] MEDS: metroNIDAZOLE 500 MG INJ 100 ML IV SCH ×4 (00:22→23:07)
[2017-12-04] MEDS: NYSTAT/DIPHENHY/LIDO MOUTHWASH (Adult) 120ML SWISH-SWAL SCH ×5 (00:23→19:49)
--- NOTE | 2017-12-04 00:30 | EKG ---
Date Performed: 12/02/2017 Time Performed: 14:30:25 PTAGE: 62 years EKG: ELECTRONIC VENTRICULAR PACEMAKER ABNORMAL RHYTHM ECG PREVIOUS TRACING : 06/05/2009 07.37 DOCTOR: Osman Marquez Interpretating Date/Time 12/04/2017 00:15:38
[2017-12-04] MEDS: AZTREONAM INJ 2,000 MG in SODIUM CHLORIDE 0.9% INJ 100 ML IV SCH ×4 (02:25→19:49)
[2017-12-04] MEDS ORDERED: POVIDONE IODINE 5% (ANTISEPSIS KIT) 4 APPLICATIONS EACH NARE PRN ×2 (03:30→22:00)
[2017-12-04] MEDS ORDERED: CHLORHEXIDINE GLUCONATE 2 % 1 PACK (2 CLOTHS) TOPICAL PRN ×2 (03:30→22:00)
[2017-12-04] MEDS: LEVOTHYROXINE SODIUM 150 MCG TAB PO SCH (05:02)
[2017-12-04] MEDS ORDERED: SODIUM HYPOCHLORITE 0.125% 500 ML BTL TOPICAL STA (07:50)
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
[2017-12-04] MEDS: POLYETHYLENE GLYCOL 17 GM PKG PO SCH (08:31)
[2017-12-04] MEDS: SODIUM CHLORIDE 0.9% FLUSH 10 ML FLUSH IV FLUSH SCH ×2 (09:00→19:51)
[2017-12-04] MEDS: PRAVASTATIN SOD 20 MG TAB PO SCH (09:00)
[2017-12-04] MEDS ORDERED: NYSTAT/DIPHENHY/LIDO MOUTHWASH (Adult) 120ML SWISH-SWAL SCH (09:00)
[2017-12-04] MEDS: SODIUM HYPOCHLORITE 0.125% 500 ML BTL TOPICAL SCH ×2 (09:00→19:51)
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
[2017-12-04] MEDS: LACTOBACILLUS ACIDOPHILUS TAB PO SCH ×3 (10:10→18:00)
[2017-12-04] MEDS: LISINOPRIL 20 MG TAB PO SCH (10:10)
[2017-12-04] MEDS: DIAZEPAM 10 MG TAB PO PRN ×2 (10:23→18:09)
[2017-12-04] MEDS: COLLAGENASE OINT 30 GM TUBE TOPICAL SCH (11:00)
--- NOTE | 2017-12-04 11:35 | PD.WCN.NOT ---
Wound Consult Description: Received consult for wound management of ischium, buttocks and heel. Patient seen today with Doctor Osborn for R ischium wound evaluation. Communicated with: EYAD Sandhu ,Doctor Osborn, Doctor Lazaro and [facility] Recommendation: Please follow orders written via CPOE for wound care by Doctor Osborn Additional Information: [facility] and [facility] L[facility]. Patient spoke with Doctor Osborn prior to wound assessment. Assessed L hip wound with 100% red muscle tissue with large island of epithelial tissue. Wound measures ~6cm x ~4cm x ~0.5cm. Wound noted with minimal sero-sanguinous drainage that is without odor. Cleansed wound with normal saline and covered with Allevyn adhesive foam dressing. Patient then turned to L side for assessment of R ischium and sacral area. Removed dressing on R ischium to reveal open wound to R ischium. Wound bed presents with 100% yellow loosely adherent yellow slough.Wound measures 2.9cmx 3.9cm x ~3cm.Periwound is erythematous with induration circumferentially. Wound is draining moderate sero-sanguinous drainage that has foul odor.Wound was cleansed with normal saline and gauze pad. Doctor Osborn Sharp debrided wound with scissors and forceps. Wound was cleansed with 0.125% dakins solution after debridement. Doctor Lazaro then arrived in room. Doctor Lazaro additionally sharp debrided L ischium wound with scissors and forceps. Doctor Osborn debrided wound additionally after Doctor Lazaro finished with scissors and forceps. Tissue culture was taken of wound. Cleansed Wound with Dakin's 0.125% solution after debridement and left in place for ~5 minutes. Removed Dakin's soaked 4x4 gauze.R ischium wound was packed with 0.125% Dakin's moistened gauze and covered with bordered gauze. Skin prep was applied before covering wound with dressing. Removed dressing covering sacral wound to reveal wound with 100% red granulation tissue. Periwound presents with maceration that is circumferential. Epibole wound margins area noted. Cleansed wound with normal saline. Wound measures ~0.6cm x ~3.5cm x ~0.6cm. Doctor Osborn applied silver nitrate to epibole wound margins. Applied skin barrier film (skin prep ) to periwound. Maxorb II (calcium alginate was loosely packed to wound bed and then covered with bordered gauze. Skin prep was applied to periwound before covering wound with dressing. Valerie Leigh [facility] Dec 04, 2017 11:35
[2017-12-04] MEDS: LACTATED RINGER'S 1000 ML IV PRN (11:40)
[2017-12-04] MEDS ORDERED: PROPOFOL 200 MG/20 ML AMP IV ONE (12:00)
[2017-12-04] MEDS ORDERED: LIDOCAINE HCL 1% PF 5 ML SYRINGE OTHER ONE (12:00)
[2017-12-04] MEDS ORDERED: PHENYLEPH/NS 1000 MCG/10 ML SYR IV ONE (12:00)
[2017-12-04] MEDS ORDERED: PHARMACY ORDERED LAB ONE (12:45)
[2017-12-04] MEDS: VANCOMYCIN INJ 1,250 MG in SODIUM CHLOR 0.9% 250 ML INJ 250 ML IV SCH (13:00)
[2017-12-04] MEDS ORDERED: DO NOT ADM ANY ANTICOAGULANT DRUGS PRN (14:20)
--- NOTE | 2017-12-04 15:16 | PD.PROCEDR ---
GI Procedure PROCEDURE PERFORMED EGD with biopsy and dilation followed by an incomplete colonoscopy to the sigmoid due to poor prep INDICATION FOR PROCEDURE Dysphagia, constipation, weight loss PROCEDURE: The procedure, risks and benefits were discussed with Ms. Benítez and informed consent was obtained. Anesthesia sedated her with Diprivan. She was placed in the left lateral decubitus position. EGD: The Pentax videoscope was introduced through the oropharynx and advanced to the second portion of the duodenum under direct visualization. Retroflexion was performed in the stomach. FINDINGS: The esophagus this appeared to be unremarkable within the normal limits a dilation was performed using a savory dilator over guidewires size 17 mm postdilatation view was unremarkable with no mucosal rent distal esophageal biopsies were taken for further evaluation The stomach this appeared to be unremarkable with normal limits The duodenum this appeared to be unremarkable and within normal limits Colonoscopy: The Pentax videoscope was introduced through the rectum and advanced to sigmoid. Retroflexion was performed in the rectum. Colonic prep was poor with solid stools noted in the sigmoid and rectum FINDINGS: There was so much stool noted in the rectum and sigmoid I was unable to see much of the colon but when I saw was normal ESTIMATED BLOOD LOSS: None SPECIMENS REMOVED: Esophageal biopsy COMPLICATIONS: None IMPRESSION: Normal EGD Incomplete colonoscopy to the sigmoid due to poor prep PLAN: Await biopsies Repeat colonoscopy tomorrow Darrell Leon MD Dec 04, 2017 15:16
[2017-12-04] MEDS ORDERED: MINERAL OIL ENEMA 118 ML BTL RECTAL ONE (16:00)
[2017-12-04] MEDS ORDERED: PEG (High)/E-LYTE SOLN 4000 ML BTL PO ONE (16:00)
[2017-12-04] MEDS: oxyCODONE/ACETAMINOPHEN 10 MG/325 MG TAB PO PRN (18:09)
[2017-12-04] MEDS ORDERED: LACTATED RINGER'S 1000 ML IV PRN (22:00)
[2017-12-04] MEDS ORDERED: MAGNESIUM CITRATE SOLN 300 ML BTL PO ONE (22:00)
[2017-12-04] MEDS ORDERED: METOPROLOL TARTRATE 25 MG TAB PO PRN (22:00)
[2017-12-04] MEDS ORDERED: SODIUM CHLORID 0.9% 500 ML IV PRN (22:00)
[2017-12-04] MEDS: ENOXAPARIN SODIUM 40 MG/0.4 ML SYRINGE SQ SCH (22:50)
[2017-12-04] MEDS ORDERED: POLYETHYLENE GLYCOL 17 GM PKG PO ONE (23:00)
[2017-12-05] VITALS (7 sets, daily range): BP systolic 102–129; BP diastolic 64–82; PULSE 80–88; RESP 16–17; TEMP 97.9–98.5; O2SAT 95–99
[2017-12-05] MEDS: DIAZEPAM 10 MG TAB PO PRN ×3 (02:32→14:56)
[2017-12-05] MEDS: oxyCODONE/ACETAMINOPHEN 10 MG/325 MG TAB PO PRN ×4 (02:32→19:00)
[2017-12-05] MEDS: AZTREONAM INJ 2,000 MG in SODIUM CHLORIDE 0.9% INJ 100 ML IV SCH ×4 (02:33→20:47)
[2017-12-05] MEDS ORDERED: MAGNESIUM CITRATE SOLN 300 ML BTL PO ONE (05:00)
[2017-12-05] MEDS: LEVOTHYROXINE SODIUM 150 MCG TAB PO SCH (05:15)
[2017-12-05] MEDS: NYSTAT/DIPHENHY/LIDO MOUTHWASH (Adult) 120ML SWISH-SWAL SCH ×4 (09:00→20:47)
[2017-12-05] MEDS: SODIUM HYPOCHLORITE 0.125% 500 ML BTL TOPICAL SCH ×3 (09:00→20:49)
[2017-12-05] MEDS: POLYETHYLENE GLYCOL 17 GM PKG PO SCH ×2 (09:00→12:05)
[2017-12-05] MEDS: LISINOPRIL 20 MG TAB PO SCH (09:25)
[2017-12-05] MEDS: PRAVASTATIN SOD 20 MG TAB PO SCH (09:25)
[2017-12-05] MEDS: LACTOBACILLUS ACIDOPHILUS TAB PO SCH ×3 (09:26→18:59)
[2017-12-05] MEDS: metroNIDAZOLE 500 MG INJ 100 ML IV SCH ×2 (09:26→14:56)
[2017-12-05] MEDS: COLLAGENASE OINT 30 GM TUBE TOPICAL SCH (09:27)
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
[2017-12-05 10:17] LABS: HEMATOCRIT 38.4 % (39.0-51.0); HEMOGLOBIN 12.7 GM/DL (13.0-17.0); MEAN CELL VOLUME 91.3 FL (80.0-100.0); MEAN CORPUSCULAR HEMOGLOBIN 30.2 PG (27.0-34.0); MEAN CORPUSCULAR HGB CONC 33.1 % (32.0-36.0); MEAN PLATELET VOLUME 7.5 FL (7.0-11.0); PLATELET COUNT 475 TH/MM3 (150-450); RED BLOOD COUNT 4.21 MIL/MM3 (4.50-5.90); RED CELL DISTRIBUTION WIDTH 15.3 % (11.6-17.2); WHITE BLOOD COUNT 10.4 TH/MM3 (4.0-11.0)
[2017-12-05] MEDS: SODIUM CHLORIDE 0.9% FLUSH 10 ML FLUSH IV FLUSH SCH ×2 (12:06→20:47)
[2017-12-05] MEDS: ENOXAPARIN SODIUM 40 MG/0.4 ML SYRINGE SQ SCH (22:00)
[2017-12-06] VITALS (7 sets, daily range): BP systolic 107–143; BP diastolic 65–85; PULSE 80–82; RESP 16–18; TEMP 97.7–98.4; O2SAT 93–99
[2017-12-06] MEDS: metroNIDAZOLE 500 MG INJ 100 ML IV SCH ×4 (00:21→23:32)
[2017-12-06] MEDS: AZTREONAM INJ 2,000 MG in SODIUM CHLORIDE 0.9% INJ 100 ML IV SCH ×4 (03:07→20:43)
[2017-12-06] MEDS: oxyCODONE/ACETAMINOPHEN 10 MG/325 MG TAB PO PRN ×5 (03:16→23:32)
[2017-12-06] MEDS: LEVOTHYROXINE SODIUM 150 MCG TAB PO SCH (05:55)
[2017-12-06] MEDS: SODIUM HYPOCHLORITE 0.125% 500 ML BTL TOPICAL SCH ×3 (07:41→20:44)
[2017-12-06] MEDS: LACTOBACILLUS ACIDOPHILUS TAB PO SCH ×3 (07:54→17:07)
[2017-12-06] MEDS: PRAVASTATIN SOD 20 MG TAB PO SCH (07:54)
[2017-12-06] MEDS: SODIUM CHLORIDE 0.9% FLUSH 10 ML FLUSH IV FLUSH SCH ×2 (07:54→20:43)
[2017-12-06] MEDS: POLYETHYLENE GLYCOL 17 GM PKG PO SCH (07:54)
[2017-12-06] MEDS: NYSTAT/DIPHENHY/LIDO MOUTHWASH (Adult) 120ML SWISH-SWAL SCH ×4 (07:55→20:44)
[2017-12-06] MEDS: COLLAGENASE OINT 30 GM TUBE TOPICAL SCH (07:55)
[2017-12-06] MEDS: LISINOPRIL 20 MG TAB PO SCH (07:57)
[2017-12-06] MEDS: DIAZEPAM 10 MG TAB PO PRN ×2 (07:59→19:14)
[2017-12-06] MEDS: ONDANSETRON HCL 4 MG/2 ML VIAL IV PUSH PRN (08:00)
[2017-12-06] MEDS ORDERED: OXYC1TAB36 PO (11:50)
--- NOTE | 2017-12-06 11:53 | HHI.FF ---
Face to Face Verification Diagnosis: (1) Wound infection Physical Therapy Order: Evaluate and Treat Home Health Nursing Order: Wound care and dressing changes Instructions: cleanse the wound site,apply Santyl ointment at 2 mm thickness directly to the wound or to a sterile gauze pad - then apply to the wound site. D not use dressing containing silver or iodine. I have seen patient Forrest Champion on 12/06/17. My clinical findings support the need for the requested home health care services because: Ltd mobility - disease progression I certify that my clinical findings support that this patient is homebound because: Unsteady gait/balance Amy Ho MD Dec 06, 2017 11:53
[2017-12-06] MEDS ORDERED: MAGNESIUM CITRATE SOLN 300 ML BTL PO ONE ×2 (12:00→18:00)
[2017-12-06] MEDS ORDERED: POLYETHYLENE GLYCOL POWDER 255 GM BTL PO ONE (12:00)
--- NOTE | 2017-12-06 12:17 | PD.PROCEDR ---
GI Procedure PROCEDURE PERFORMED Incomplete colonoscopy to the transverse colon due to poor prep INDICATION FOR PROCEDURE Weight loss and constipation PROCEDURE: The procedure, risks and benefits were discussed with Ms. Benítez and informed consent was obtained. Anesthesia sedated her with Diprivan. She was placed in the left lateral decubitus position. Colonoscopy: The Pentax videoscope was introduced through the rectum and advanced to transverse colon. Retroflexion was performed in the rectum. Colonic prep was poor prep FINDINGS: As the scope was slowly withdrawn colonic mucosa was carefully inspected this was noted to be unremarkable but this evaluation is very limited and incomplete due to poor prep ESTIMATED BLOOD LOSS: None SPECIMENS REMOVED: None COMPLICATIONS: None IMPRESSION: Incomplete colonoscopy due to poor prep Otherwise unremarkable colonoscopy PLAN: Recommend colonoscopy tomorrow Darrell Leon MD Dec 06, 2017 12:17
[2017-12-06] MEDS ORDERED: POLYETHYLENE GLYCOL 17 GM PKG PO SCH ×2 (12:54→13:15)
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
[2017-12-06] MEDS ORDERED: oxyCODONE/ACETAMINOPHEN 10 MG/325 MG TAB PO PRN (13:15)
--- NOTE | 2017-12-06 15:23 | PD.WCN.NOT ---
Wound Consult Description: Received consult for wound management of ischium, buttocks and heel. Patient seen today with Doctor Osborn for R ischium wound evaluation. Communicated with: EYAD Nolan and Doctor Osborn Recommendation: Please follow orders written via CPO[facility] for wound care by Doctor Osborn. Apply Allevyn gentle border or optifoam gentle border 4x4 as secondary dressing on sacrum and L hip Additional Information: Patient seen on for follow up requested by Doctor Osborn, Patient is laying in bed post colonoscopy. Patient is upset because he will have to have another colonoscopy tomorrow. Patient was positioned to L side for evaluation of R ischial wound. Removed ABD pad dressing in place to reveal open wound to R ischium. Wound bed presents with ~30% necrotic facia that is yellow and stringy , ~60% yellow slough that is moist and partially friable and ~10% pink tissue. Bone is palpated at wound base, but unable to visualize.Wound drainage is sero- sanguinous and minimal without foul odor. Wound measures 2cm x ~3cm x ~3cm . Undermining is noted circumferentially deepest at 1.4cm.Wound was cleansed with normal saline and gauze pad. Santyl ointment was applied to loosely packed 0.125 % Dakin's solution moistened gauze. Skin prep was applied to periwound before covering wound with bordered gauze. Removed ABD pad dressing in place to sacrum to reveal open wound that is stable and presents similarly to previous assessment. Wound was cleansed with normal saline and patted dry. Wound measures 1cm x 3cm x 0.6cm. Wound bed presents with 100% red tissue. Wound margins were treated with silver nitrate with last assessment. Wound drainage is minimal and sero-sanguinous without odor.Applied skin prep to periwound. Wound was loosely packed with maxorb II and covered with bordered gauze, due to bowel prep did not use foam dressing due to risk of moisture related breakdown. Patient was then positioned to R side for evaluation of L hip wound . Adhesive foam dressing was removed to reveal wound. Wound to L hip presents with ~100% muscle tissue with scar tissue noted to periwound Wound drainage is scant sero- sanguinous without odor. Wound was cleansed with normal saline and patted dry. Undermining is presents from 7 to 12 deepest at 12o'clock measuring ~2.7cm. Wound measures 5cm x 6cm x 0.8cm Applied Skin prep to periwound and covered wound with adhesive foam dressing. Maxorb was not placed in wound bed due to scant drainage and dry appearing muscle tissue.Spoke with Doctor Anurag regarding findings and recommendations. Valerie Leigh [facility] Dec 06, 2017 15:23
[2017-12-06] MEDS: ENOXAPARIN SODIUM 40 MG/0.4 ML SYRINGE SQ SCH (20:43)
[2017-12-06] MEDS ORDERED: BISACODYL 10 MG SUPP RECTAL ONE (23:00)
[2017-12-07] VITALS (9 sets, daily range): BP systolic 88–118; BP diastolic 61–74; PULSE 80; RESP 16–18; TEMP 97.4–98.6; O2SAT 95–98
[2017-12-07] MEDS: AZTREONAM INJ 2,000 MG in SODIUM CHLORIDE 0.9% INJ 100 ML IV SCH ×4 (01:39→20:07)
[2017-12-07] MEDS: LEVOTHYROXINE SODIUM 150 MCG TAB PO SCH (06:04)
[2017-12-07] MEDS: oxyCODONE/ACETAMINOPHEN 10 MG/325 MG TAB PO PRN ×3 (06:06→20:10)
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
[2017-12-07] MEDS: LACTOBACILLUS ACIDOPHILUS TAB PO SCH ×3 (08:16→16:13)
[2017-12-07] MEDS: SODIUM CHLORIDE 0.9% FLUSH 10 ML FLUSH IV FLUSH SCH ×2 (08:16→20:07)
[2017-12-07] MEDS: PRAVASTATIN SOD 20 MG TAB PO SCH (08:16)
[2017-12-07] MEDS: POLYETHYLENE GLYCOL 17 GM PKG PO SCH (08:16)
[2017-12-07] MEDS: metroNIDAZOLE 500 MG INJ 100 ML IV SCH ×2 (08:16→16:12)
[2017-12-07] MEDS: LISINOPRIL 20 MG TAB PO SCH (08:16)
[2017-12-07] MEDS: DIAZEPAM 10 MG TAB PO PRN ×2 (08:52→20:18)
[2017-12-07] MEDS: ONDANSETRON HCL 4 MG/2 ML VIAL IV PUSH PRN ×2 (08:53→20:18)
[2017-12-07] MEDS: SODIUM HYPOCHLORITE 0.125% 500 ML BTL TOPICAL SCH ×3 (08:55→20:09)
[2017-12-07] MEDS: NYSTAT/DIPHENHY/LIDO MOUTHWASH (Adult) 120ML SWISH-SWAL SCH ×4 (08:55→20:08)
[2017-12-07] MEDS: COLLAGENASE OINT 30 GM TUBE TOPICAL SCH (08:56)
[2017-12-07] MEDS ORDERED: POLYETHYLENE GLYCOL 17 GM PKG PO SCH (09:00)
[2017-12-07] MEDS: LACTATED RINGER'S 1000 ML IV PRN (09:46)
[2017-12-07] MEDS ORDERED: METOPROLOL TARTRATE 25 MG TAB PO PRN (10:15)
[2017-12-07] MEDS ORDERED: LACTATED RINGER'S 1000 ML IV PRN (10:15)
[2017-12-07] MEDS ORDERED: CHLORHEXIDINE GLUCONATE 2 % 1 PACK (2 CLOTHS) TOPICAL PRN (10:15)
[2017-12-07] MEDS ORDERED: INSULIN HUMAN REGULAR 1,000 UNITS/10 ML VIAL SQ PRN (10:15)
[2017-12-07] MEDS ORDERED: SODIUM CHLORID 0.9% 500 ML IV PRN (10:15)
[2017-12-07] MEDS ORDERED: POVIDONE IODINE 5% (ANTISEPSIS KIT) 4 APPLICATIONS EACH NARE PRN (10:15)
[2017-12-07] MEDS ORDERED: PROPOFOL 200 MG/20 ML AMP IV ONE (12:00)
[2017-12-07] MEDS ORDERED: PHENYLEPH/NS 1000 MCG/10 ML SYR IV ONE (12:00)
--- NOTE | 2017-12-07 14:10 | PD.PROCEDR ---
GI Procedure PROCEDURE PERFORMED Colonoscopy with snare polypectomy and biopsy INDICATION FOR PROCEDURE Constipation, weight loss PROCEDURE: The procedure, risks and benefits were discussed with Mr. Champion and informed consent was obtained. Anesthesia sedated him with Diprivan. He was placed in the left lateral decubitus position. Colonoscopy: The Pentax videoscope was introduced through the rectum and advanced to cecum where the ileocecal valve and appendiceal orifice were identified. Retroflexion was performed in the rectum. Colonic prep was good FINDINGS: Colonic withdrawal time greater than 6 minutes. As the scope was slowly withdrawn colonic mucosa was carefully inspected the patient was noted to have a small sessile polyp in the cecum this was excised using cold snare technique there was a second small sessile polyp in the sigmoid this too was excised using cold snare technique there was several small superficial polyps in the rectum probably hyperplastic multiple biopsies were taken for further evaluation otherwise the colon was noted to be very tortuous but otherwise unremarkable so is retroflexion and rectal examination ESTIMATED BLOOD LOSS: None SPECIMENS REMOVED: Colon biopsies COMPLICATIONS: None IMPRESSION: Colon polyps Tortuous colon PLAN: Await biopsies High-fiber diet colon Regimen to include MiraLAX daily probably 2 or 3 times a day Colonoscopy in 5 years Okay for discharge from a GI standpoint Darrell Leon MD Dec 07, 2017 14:10
[2017-12-07] MEDS ORDERED: DO NOT ADM ANY ANTICOAGULANT DRUGS PRN (14:30)
--- NOTE | 2017-12-07 19:12 | HHI.PR ---
Addendum to Inpatient Note Additional Information pt had colonoscopy today he grew out anaerobic GNB anticipate eventual dc on PO abx Zahra Arguello MD Dec 07, 2017 19:12
[2017-12-07] MEDS: ENOXAPARIN SODIUM 40 MG/0.4 ML SYRINGE SQ SCH (20:18)
[2017-12-08] VITALS (10 sets, daily range): BP systolic 93–149; BP diastolic 61–94; PULSE 80–82; RESP 17–18; TEMP 97.7–99.4; O2SAT 97–99
[2017-12-08] MEDS: metroNIDAZOLE 500 MG INJ 100 ML IV SCH ×3 (01:00→16:15)
[2017-12-08] MEDS: AZTREONAM INJ 2,000 MG in SODIUM CHLORIDE 0.9% INJ 100 ML IV SCH ×4 (01:01→19:16)
[2017-12-08] MEDS: oxyCODONE/ACETAMINOPHEN 10 MG/325 MG TAB PO PRN ×4 (01:07→19:17)
[2017-12-08] MEDS: LEVOTHYROXINE SODIUM 150 MCG TAB PO SCH (05:57)
[2017-12-08] MEDS: ONDANSETRON HCL 4 MG/2 ML VIAL IV PUSH PRN ×3 (06:01→21:22)
[2017-12-08 08:25] LABS: HEMOGLOBIN 11.6 GM/DL (13.0-17.0); MEAN CELL VOLUME 91.5 FL (80.0-100.0); MEAN CORPUSCULAR HEMOGLOBIN 30.4 PG (27.0-34.0); MEAN CORPUSCULAR HGB CONC 33.2 % (32.0-36.0); MEAN PLATELET VOLUME 7.1 FL (7.0-11.0); PLATELET COUNT 468 TH/MM3 (150-450); RED BLOOD COUNT 3.83 MIL/MM3 (4.50-5.90); RED CELL DISTRIBUTION WIDTH 15.5 % (11.6-17.2); WHITE BLOOD COUNT 10.1 TH/MM3 (4.0-11.0)
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
[2017-12-08] MEDS ORDERED: MIRA3350 PO (08:33)
[2017-12-08] MEDS: LISINOPRIL 20 MG TAB PO SCH (08:38)
[2017-12-08] MEDS: POLYETHYLENE GLYCOL 17 GM PKG PO SCH (08:38)
[2017-12-08] MEDS: PRAVASTATIN SOD 20 MG TAB PO SCH (08:38)
[2017-12-08] MEDS: LACTOBACILLUS ACIDOPHILUS TAB PO SCH ×3 (08:38→16:15)
[2017-12-08] MEDS: SODIUM CHLORIDE 0.9% FLUSH 10 ML FLUSH IV FLUSH SCH ×2 (08:39→19:16)
[2017-12-08] MEDS: NYSTAT/DIPHENHY/LIDO MOUTHWASH (Adult) 120ML SWISH-SWAL SCH ×4 (08:40→19:17)
[2017-12-08] MEDS: SODIUM HYPOCHLORITE 0.125% 500 ML BTL TOPICAL SCH ×3 (08:40→19:17)
[2017-12-08] MEDS: COLLAGENASE OINT 30 GM TUBE TOPICAL SCH (08:41)
[2017-12-08] MEDS: APIXABAN 5 MG TABLET PO SCH ×2 (10:17→19:16)
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
[2017-12-08] MEDS: DIAZEPAM 10 MG TAB PO PRN ×2 (12:44→21:22)
[2017-12-09] VITALS: BP 124/70; PULSE 80; RESP 18; TEMP 98; O2SAT 95
[2017-12-09] MEDS: oxyCODONE/ACETAMINOPHEN 10 MG/325 MG TAB PO PRN ×3 (00:17→09:34)
[2017-12-09] MEDS: metroNIDAZOLE 500 MG INJ 100 ML IV SCH ×2 (00:17→08:47)
[2017-12-09] MEDS: AZTREONAM INJ 2,000 MG in SODIUM CHLORIDE 0.9% INJ 100 ML IV SCH ×2 (01:47→08:47)
[2017-12-09 04:00] VITALS: BP 150/89; PULSE 80; RESP 18; TEMP 97.5; O2SAT 97
[2017-12-09] MEDS: DIAZEPAM 10 MG TAB PO PRN (04:22)
[2017-12-09] MEDS: LEVOTHYROXINE SODIUM 150 MCG TAB PO SCH (05:32)
[2017-12-09 08:00] VITALS: BP 125/76; PULSE 80; RESP 17; TEMP 97.7; O2SAT 95
[2017-12-09] MEDS: LACTOBACILLUS ACIDOPHILUS TAB PO SCH (08:48)
[2017-12-09] MEDS: PRAVASTATIN SOD 20 MG TAB PO SCH (08:48)
[2017-12-09] MEDS: SODIUM CHLORIDE 0.9% FLUSH 10 ML FLUSH IV FLUSH SCH (08:48)
[2017-12-09] MEDS: APIXABAN 5 MG TABLET PO SCH (08:48)
[2017-12-09] MEDS: LISINOPRIL 20 MG TAB PO SCH (08:48)
[2017-12-09] MEDS: SODIUM HYPOCHLORITE 0.125% 500 ML BTL TOPICAL SCH ×2 (08:49→08:50)
[2017-12-09] MEDS: COLLAGENASE OINT 30 GM TUBE TOPICAL SCH (08:49)
[2017-12-09] MEDS: NYSTAT/DIPHENHY/LIDO MOUTHWASH (Adult) 120ML SWISH-SWAL SCH (08:49)
[2017-12-09] MEDS: POLYETHYLENE GLYCOL 17 GM PKG PO SCH (08:49)
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
[2017-12-09] MEDS ORDERED: LEVA750T9 PO (09:37)
[2017-12-09] MEDS ORDERED: METR-1 PO (09:37)
[2017-12-09] MEDS: ONDANSETRON HCL 4 MG/2 ML VIAL IV PUSH PRN (09:38)
[2017-12-09] MEDS ORDERED: OXYC1TAB36 PO (09:39)
[2017-12-09] MEDS ORDERED: COLL30T TOPICAL (11:15)
== END 2017-12-09 11:37 | disposition home health service (06) | DRG 871 ==
LOC: NEPE 15:04 → NEDA 19:48 → NEDH 11-29 00:13 → NEPGCP 11-29 14:48 → N07A 12-01 14:03
PROVIDERS: ADMIT Internal Medicine; ATTEND Internal Medicine
PROC: 0D758ZZ Dilation of Esophagus, Via Natural or Artificial Opening Endoscopic (ICD-10-PCS; 2017-12-04)
PROC: 0DJD8ZZ Inspection of Lower Intestinal Tract, Via Natural or Artificial Opening Endoscopic (ICD-10-PCS; 2017-12-04)
PROC: 0DB58ZX Excision of Esophagus, Via Natural or Artificial Opening Endoscopic, Diagnostic (ICD-10-PCS; principal; 2017-12-04 13:50)
PROC: 0JD73ZZ Extraction of Back Subcutaneous Tissue and Fascia, Percutaneous Approach (ICD-10-PCS; 2017-12-04 13:50)
PROC: 0DJD8ZZ Inspection of Lower Intestinal Tract, Via Natural or Artificial Opening Endoscopic (ICD-10-PCS; 2017-12-06)
PROC: 0DBH8ZX Excision of Cecum, Via Natural or Artificial Opening Endoscopic, Diagnostic (ICD-10-PCS; 2017-12-07)
PROC: 0DBN8ZX Excision of Sigmoid Colon, Via Natural or Artificial Opening Endoscopic, Diagnostic (ICD-10-PCS; 2017-12-07)
PROC: 0DBP8ZX Excision of Rectum, Via Natural or Artificial Opening Endoscopic, Diagnostic (ICD-10-PCS; 2017-12-07)
DX: A41.9 Sepsis, unspecified organism (principal); L89.313 Pressure ulcer of right buttock, stage 3; G82.20 Paraplegia, unspecified; I48.2 Chronic atrial fibrillation; K50.90 Crohn's disease, unspecified, without complications; I42.9 Cardiomyopathy, unspecified; L03.317 Cellulitis of buttock; Z68.1 Body mass index [BMI] 19.9 or less, adult; N39.0 Urinary tract infection, site not specified; T83.518A Infection and inflammatory reaction due to other urinary catheter, initial encounter; N31.9 Neuromuscular dysfunction of bladder, unspecified; Z93.59 Other cystostomy status; R63.4 Abnormal weight loss; M19.90 Unspecified osteoarthritis, unspecified site; E03.9 Hypothyroidism, unspecified; I71.4 Abdominal aortic aneurysm, without rupture; I10 Essential (primary) hypertension; K21.9 Gastro-esophageal reflux disease without esophagitis; Y84.6 Urinary catheterization as the cause of abnormal reaction of the patient, or of later complication, without mention of misadventure at the time of the procedure; N20.0 Calculus of kidney; R47.02 Dysphasia; K63.5 Polyp of colon; Z87.891 Personal history of nicotine dependence; Z95.810 Presence of automatic (implantable) cardiac defibrillator; Z95.0 Presence of cardiac pacemaker; Z79.01 Long term (current) use of anticoagulants
CPT/HCPCS: 71045; 72170; 74176; 78452; 80048; 80053; 80202; 81001; 82550; 83605; 84145; 84484; 85025; 85027; 85610; 85652; 85730; 86140; 87040; 87070; 87086; 87176; 87185; 87205; 88305; 93005; 93017; 93306; 99285; A9502; C1769; J1170; J1644; J1650; J2370; J2405; J2785; J3370; J7030; J7040; J7050; J7120; Q9963